=== PATIENT | male | born 1985 | race Caucasian/White ===

== ENCOUNTER 2025-06-06 14:48 | Outpatient (REF) | payer MEDICAID, SELFPAY ==
--- OUTSIDE RECORDS SUMMARY | 2025-06-06 13:45 | XMS_ITS | Encounter Summary ---
Author Organization [employer] Address [address] 7[address] [place] [address] Care Team Providers Care Forensic Locksmith Name Role Phone Francie Moreno WOOD BORER Primary Care Provider [phone] Daniel Silvestre Unavailable Tiffanie Wayne Unavailable [phone] Encounter Details Date Type Department Care Team (Late st Contact Info) Description 06/06/2025 1:45 PM EDT Office Visit [facility] [address] [place], [place] [phone] Francie Moreno FNP [address] [place] [address] Type 2 diabetes mellitus with hyperglycemia, with long-term current use of insulin ([facility]) (Primary Dx); Adult wellness visit Social History Tobacco Use Types Packs/Day Years Used Date Smoking Tobacco: Never Passive Smoke Exposure: Never Smokeless Tobacco: Never Depression Answer Date Recorded Patient Health Questionnaire-9 Score 21 12/14/2024 Patient Health Questionnaire-9 Score 21 12/14/2024 Last PHQ-9: Questionnaire Data Not on file 0 12/14/2024 Housing Stability Answer Date Recorded What is your housing situation today? I have housing today, but I am worried about losing housing in the future 02/01/[address] you li ve. Do you have problems with any of the following? Pests such as bugs, ants, or mice;Mold;Water leaks 02/01/2025 Food Insecurity Answer Date Recorded Within the past 12 months, y ou worried that your food would run out before you got money to buy more: Never True 02/01/2025 Within the past 12 months,th e food you bought just didn't last and you didn't have enough money to get more: Never True Transportation Answer Date Recorded In the past 12 months, has l ack of transportation kept you from medical appts, meetings, work or from getting things needed for daily living? Yes, it has kept me from non-medical meetings, work, or getting things that I need 02/01/2025 Utilities Answer Date Recorded In the past 12 months, has t he [employer], gas, oil or water company threatened to shut off services in your home? No 02/01/2025 Depression Answer Date Recorded Patient Health Questionnaire-2 Score 3 12/14/2024 Internet Access Answer Date Recorded Internet Access Q1 No 02/01/2025 Internet Access Q2 Not on file 02/01/2025 Sex and Gender Information Value Date Recorded Sex Assigned at Male 08/09/2022 10:15 AM EDT Legal Sex Male 10:15 AM EDT Gender Identity Male 08/09/2022 10:15 AM EDT Sexual Orientation Straight 08/09/2022 10 :15 AM EDT documented as of this encounter Last Filed Vital Signs Vital Sign Reading Time Taken Comments Blood Pressure 130/82 06/06/2025 2:10 PM EDT Pulse 109 06/06/2025 2:10 PM EDT Temperature 36.9 C (98.4 F) 06/06/2025 2:10 PM EDT Respiratory Rate 16 06/06/2025 2:10 PM EDT Oxygen Saturation 94% 06/06/2025 2:10 PM EDT Inhaled Oxygen Concentration - - Weight 83.6 kg (184 lb 4 oz) 06/06/2025 2:10 PM EDT Height 175.3 cm (5' 9 ) 06/06/2025 2:10 PM EDT Body Mass Index 27.21 06/06/2025 2:10 PM EDT documented in this encounter Plan of Treatment Upcoming Encounters Date Type Department Care Team (Late st Contact Info) Description 07/11/2025 9:00 AM EDT Office Visit [facility] [address] [place] [address] Francie Moreno FNP [address] [place] [address] Scheduled Orders Name Type Priority Associated Diagnoses Orde r Schedule Hemoglobin A1c Lab Routine Type 2 diabetes mellitus with hyperglycemia, with long-term current use of insulin ([facility]) Expected: 06/06/2025 (Approximate), Expires: 06/06/2026 Vitamin D, 25-Hydroxy, Total, Immunoassay Lab Routine Adult wellness visit Expected: 06/06/2025 (Approximate), Expires: 06/06/2026 documented as of this encounter Procedures Procedure Name Priority Date/Time Associated Diagnosis Comments POCT GLUCOSE Routine 06/06/2025 2:28 PM EDT Type 2 diabetes mellitus with hyperglycemia, with long-term current use of insulin ([facility]) documented in this encounter Results * (ABNORMAL) POCT Glucose (06/06/2025 2:28 PM EDT) Glucose Blood, POC 234(A) 60 - 200 mg/dL QC Media Lot # [id number] Lot# Expiration Date [id number] Blood Capillary blood specimen / Unknown 06/06/2025 2:28 PM EDT Result [facility] Francie Moreno [facility] POINT OF CARE TEST ENTER/EDIT ORDERABLES Final Result documented in this encounter Visit Diagnoses Diagnosis Type 2 diabetes mellitus with hyperglycemia, with long-term current use of insulin ([facility])- Primary Adult wellness visit documented in this encounter Additional Health Concerns Assessment Noted Time PHQ-9 Depression Total Score: 21 025 2:31 PM EST documented as of this encounter Care Teams Forensic Locksmith Relationship Specialty Start Date End Date Francie Moreno FNP [address] [place] [address] PCP - General Family Medicine 12/14/24 Daniel Silvestre 02/20/25 Tiffanie Wayne Registered Nurse 04/29/25 documented as of this encounter
--- OUTSIDE RECORDS SUMMARY | 2025-06-06 15:30 | XMS_ITS ---
Author Organization [employer] Address [address] 7t [place] [address] Care Team Providers Care Personnel Security Specialist Name Role Phone Francie Moreno CLINIQUE COUNTER MANAGER Primary Care Provider [phone] Daniel Silvestre Unavailable Tiffanie Wayne Unavailable [phone] CHW Complex Status:Outreach In Progress (Enrolling) Start date:02/20/2025 Enrollment reason:ADT Feed Overview ADT- Pt admitted to [facility] on 02/17/25 and discharged on 02/18/25. Case Team Name Relationship Phone Daniel Silvestre(Responsible Staff) [phone] Continued Care and Services Coordination
--- OUTSIDE RECORDS SUMMARY | 2025-06-06 15:30 | XMS_ITS | Encounter Summary ---
Author Organization [employer] Address [address] [facility] 7t [place] [address] Care Team Providers Care Roller Repairer Name Role Phone Delmy Bruno MD Primary Care Provide r Francie Moreno Primary Care Provider [phone] Gabby Ortez RN Unavailable [phone] Daniel Silvestre Unavailable Tiffanie Wayne Unavailable [phone] Reason for Visit * Reason Onset Date Comments Triage 12/29/2022 Encounter Details Date Type Department Care Team (Late st Contact Info) Description 12/29/2022 Telephone [facility] [address] [place], [place] [phone] Delmy Bruno MD [address] [place], [place] [phone] Triage Social History Tobacco Use Types Packs/Day Years Used Date Smoking Tobacco: Never Assessed Sex and Gender Information Value Date Recorded Sex Assigned at Male 08/09/2022 10:15 AM EDT Legal Sex Male 10:15 AM EDT Gender Identity Male 08/09/2022 10:15 AM EDT Sexual Orientation Straight 08/09/2022 10 :15 AM EDT documented as of this encounter Miscellaneous Notes * Telephone Encounter - Liss Ramirez RN - 12/30/2022 9:14 AM EDT Pt. Not seen at [facility] in >4 years, please call for a new patient appointment, thank you! * Telephone Encounter - Rosaura John LPN - 12/29/2022 4:08 PM EDT Triage call returned to patient who reports increasingly worse depression.reports long standing history of depression not on any medications at this time. No HI/SI concerns at time of call. No new changes to patient routine or lifestyle, no reported recent trauma. Patient reports that he has not gone out of his house in some time and that he feels anxious if he does. He is not sleeping well and feels that he is forgetful and spaces out and doesn't pay attention when with others . Appetite at baseline. Not seeing therapist but reports that he has [facility] crisis number as needed when number offered. Disposition reviewed and patient in agreement with plan. No PCP or Team appts available at time of call. Team tasked to follow with patient with available appt. Protocol Used: Depression (Adult) Protocol-Based Disposition: See in Office or Video Visit within 3 Days Video visit not offered Positive Triage Question: * Depression is worsening (e.g.,sleeping poorly, less able to do activities of daily living) * All higher-acuity triage questions were negative Care Advice Discussed: * Reasons To Call Back - Sadness or depression symptoms persist over 2 weeks - You want to talk with a counselor - You feel like harming yourself - You become worse * Telephone Encounter - Heather Chino - 12/29/2022 2:54 PM EDT Symptom: Pain - Severe, Depression Outcome: Schedule an urgent appointment (within 1 hour) or talk to a nurse or provider soon Reason: No high acuity concerns reported by caller The caller accepted this outcome Please contact pt at [phone] documented in this encounter Plan of Treatment Upcoming Encounters Date Type Department Care Team ([facility] st Contact Info) Description 07/11/2025 9:00 AM EDT Office Visit [facility] [address] [place] [address] Francie Moreno FNP [address] [place] [address] documented as of this encounter Visit Diagnoses Not on filedocumented in this encounter Care Teams Roller Repairer Relationship Specialty Start Date End Date Delmy Bruno MD [address] [place] [address] PCP - General Family Medicine 11/07/18 10/31/23 Francie Moreno FNP [address] [place] [address] PCP - General Family Medicine 12/14/24 Gabby Ortez RN [address] [place] [address] Registered Nurse Family Medicine 02/20/25 04/29/25 Daniel Silvestre 02/20/25 Tiffanie Wayne Registered Nurse 04/29/25 documented as of this encounter
--- OUTSIDE RECORDS SUMMARY | 2025-06-06 15:30 | XMS_ITS | Clinical Summary ---
Author Organization [employer] Address [address] [facility] 7t [place] [address] Care Team Providers Care Transit Man Name Role Phone Francie Moreno RESIDENT SERVICES MANAGER Primary Care Provider [phone] Daniel Silvestre Unavailable Tiffanie Wayne Unavailable [phone] Allergies No known active allergies Medications Ketostix strip USE TWICE DAILY IF GLUCOSE IS OVER 400 OR IS CONSISTENTLY OVER 200. 4 Active atorvastatin (Lipitor) 10 MG tablet Take 1 tablet by mouth Once per day. 4 Active Continuous Glucose Rack Puller (Dexcom G7 Rack Puller) device USE DIRECTED FOR DIABETES CONTROL. 90 DAY SUPPLY 4 Active Continuous Glucose Sensor (Dexcom G7 Sensor) misc USE DIRECTED FOR DIABETES CONTROL. 30 DAY SUPPLY 5 Active Gvoke HypoPen 2-Pack 1 MG/0.2ML injection PLEASE SEE ATTACHED FOR DETAILED DIRECTIONS Active B-D UF III MINI PEN NEEDLES 31G X 5 MM misc USE DIRECTED FOR TYPE 2 DIABETES MELLITUS. 4 TIMES DAILY WITH INSULIN 5 Active insulin glargine (Lantus) 100 UNIT/ML pen Inject 20 Units under the skin 2 times daily. 4 Active insulin lispro (HumaLOG) 100 UNIT/ML injection Inject 10-22 Units under the skin with breakfast, with lunch, and with evening meal. Active citalopram (CeleXA) 10 MG tablet Take 1 tablet (10 mg) by mouth Once per day. 30 tablet 1 5 025 Active albuterol 108 (90 Base) MCG/ACT inhaler Inhale 2 puffs every 4 (four) hours if needed for wheezing. 18 g 1 5 026 Active fluticasone (Flonase) 50 MCG/ACT nasal spray Administer 1-2 sprays into each nostril Once per day. Shake gently. Before first use, prime pump. After use, clean tip and replace cap. 16 g 1 5 026 Active Alcohol Swabs (Alcohol Prep) 70 % pads USE 7 TIMES PER DAY 4 025 Discontin ued(Other ) Active Problems Problem Noted Date Diagnosed Date Screening due 02/03/2025 Closed fracture of upper end of left tibia with routine healing 12/17/2024 Type 2 diabetes mellitus wit h hyperglycemia, with long-term current use of insulin 12/14/2024 Overview (12/14/2024): Diagnosed 06/2024 at [facility]: Polyuria and polydipsia History of Present Illness 39-year-old male patient without significant past medical history who presents today Admission Department for evaluation of polyuria and polydipsia for the past few weeks. Reports persistent poor urine production for the past few weeks, first noticed when he was in [place] and he attributed to hot weather however has been persistent since then. He denies fever, chills, unintentional weight loss, abdominal pain, shortness of breath or chest pain upon presentation to emergency department, he was hemodynamically stable blood pressure 143/90, afebrile, maintaining saturation at 97% on room air. He was slightly tachycardic with pulse rate of 115 initial blood work was notable for significant hyperglycemia with blood sugars more than 500 hydroxybutyrate was slightly elevated at 0.86 without metabolic acidosis. Hyponatremia was 121 A1c was 12.9 she was given 3 L boluses in the emergency department, and given 10 units of lispro and admitted under medicine for further management and evaluation. Insulin Glargine Solostar Pen 100 units/mL subcutaneous solution = 30 units, Subcutaneous Infusion, 2 times a day, # 15 mL, 0 Refills, Maintenance, 07/11/24 11:35:00 EDT, [facility], Partial fill upon patient request if the prescription is for a schedule II opioid drug., 175, cm, 07/10/24 10:57:00 EDT... Start Date: 07/11/24 Stop Date: 08/10/24 Status: Ordered insulin lispro 100 units/mL injectable solution 16-31 units, Subcutaneous Injection, 3 times a day before meals, << Sliding Scale Comments >> 100 - 149 16 units Call if less than 70 150 - 199 19 units 200 - 249 22 units 250 - 299 25 units 300 - 349 28 units 350 - 399 31 units... Start Date: 07/11/24 Stop Date: 08/10/24 Status: Ordered Closed fracture of shaft of left tibia with rout ine healing 12/08/2024 Anxiety 03/07/2024 Asthma 03/07/2024 Genital herpes simplex 03/07/2024 Panic disorder 03/07/2024 Umbilical hernia 03/07/2024 Encounters Date Type Department Care Team Description 06/06/2025 1:45 PM EDT Office Visit [address] [address] Francie Moreno FNP Type 2 diabetes mellitus with hyperglycemia, with long-term current use of insulin ([facility]) (Primary Dx); Adult wellness visit 06/06/2025 Travel 06/04/2025 Patient Outreach [address] [address] Francie Moreno FNP Care Coordination ([facility]/W jasmin Cline missed assessment appt_unable to lvm) 05/30/2025 Patient Outreach [facility] [address] [place] [address] Francie Moreno FNP Pre-visit Planning (SDOH was already completed) 05/27/2025 Patient Outreach [address] [address] Francie Moreno FNP Care Coordination ([facility]/W BRISEIDA Cline RS missed assessment appt_unable to lvm) 05/14/[address] [address] Francie Moreno FNP Nurse Triage 05/06/2025 Patient Outreach [address] [address] Francie Moreno, RESIDENT SERVICES MANAGER Care Management ([facility] initial assessment-lvm) 05/03/2025 Patient Outreach [address] [address] Francie Moreno, RESIDENT SERVICES MANAGER Care Coordination ([facility]/INDIA Silvestre, appt reminder_lvm ) 04/29/2025 Patient Outreach [address] [address] Francie Moreno, RESIDENT SERVICES MANAGER Care Coordination ([facility]/INDIA Silvestre, I.A. scheduled) 03/29/2025 Patient Outreach [address] [address] Francie Moreno, RESIDENT SERVICES MANAGER Care Coordination ([facility]/Adamaris Silvestre, TC #4 initial outreach attempt_unable to lvm ) 03/07/2025 Patient Outreach [facility] [address] [place], [place] [phone] Francie Moreno, RESIDENT SERVICES MANAGER from Last 3 Months Immunizations Immunization Administration Dates Next Due Influenza, IIV3, injectable 07/08/2024 Influenza, Split (incl. purified surface antigen ) 08/16/2012 TD (adult), 2 Lf tetanus tox oid, preservative free, adsorbed 03/01/2017 Social History Tobacco Use Types Packs/Day Years Used Date Smoking Tobacco: Never Passive Smoke Exposure: Never Smokeless Tobacco: Never Tobacco Cessation:Counseling Given: Not Answered Depression Answer Date Recorded Patient Health Questionnaire-9 [...] the past 12 months, has t he [employer], gas, oil or water [employer] threatened to shut off services in your [...] Orientation Straight 08/09/2022 10 :15 AM EDT Last Filed Vital Signs Vital Sign Reading [...] Mass Index 27.21 06/06/2025 2:10 PM EDT Plan of Treatment Upcoming Encounters Date Type Department Care Team (Late st Contact Info) Description 07/11/2025 9:00 AM EDT Office Visit [facility] [address] [place] [address] Francie Moreno FNP [address] [place] [address] Health Maintenance Due Date Last Done Comments HIV Screening 1983 Lipid Panel 1983 Diabetes: Foot Exam 1993 Eye Exam 1993 Family Planning (PISQ) 1998 HPV Vaccines (1 - Male 3-dos e series) 1998 Hepatitis C Screening 2001 Diabetes: Urine Protein Screening 2002 Hepatitis B Vaccines (1 of 3 - 19+ 3-dose series) 2002 Pneumococcal Vaccine: Pediatrics (0 to 5 Years) and At-Risk Patients (6 to 49) Years (1 of 2 - PCV) 2002 DTaP/Tdap/Td Vaccines (1 - Tdap) 03/02/2017 03/01/2017 COVID-19 Vaccine (4 - 2023-2 5 season) 2024 09/09/2022, 04/07/2021, 03/17/2021 Influenza Vaccine (#1) 2025 , 08/16/2012 Depression Monitoring 06/16/2025 12/14/2024 , 12/14/2024 Diabetes: Hemoglobin A1C 08/03/2025 02/01/2025 Disability Screening 02/01/2026 02/01/2025 SDOH Screening 02/01/2026 02/01/2025 Alcohol/Substance Use Screening 06/06/2026 06/06/2025 Tobacco Screening 06/06/2026 06/06/2025 Zoster Vaccines (1 of 2) 2033 RSV Patients and Patients Aged 60 years or older (1 - 1-dose 75+ series) 2058 HIB Vaccines Aged Out No longer eligi ble based on patient's age to complete this topic Hepatitis A Vaccines Aged Out No long er eligible based on patient's age to complete this topic IPV Vaccines Aged Out No longer eligi ble based on patient's age to complete this topic Meningococcal B Vaccine Aged Out No l onger eligible based on patient's age to complete this topic Meningococcal Vaccine Aged Out No karley linda eligible based on patient's age to complete this topic RSV under 20 months Aged Out No longe r eligible based on patient's age to complete this topic Rotavirus Vaccines Aged Out No longer eligible based on patient's age to complete this topic Procedures Procedure Name Priority Date/Time Associated Diagnosis Comments POCT GLUCOSE Routine 06/06/2025 2:28 PM EDT Type 2 diabetes mellitus with hyperglycemia, with long-term current use of insulin ([facility]) POCT GLYCATED HEMOGLOBIN, TOTAL Routine 02/01/2025 9:25 AM EDT Type 2 diabetes mellitus with hyperglycemia, with long-term current use of insulin ([facility]) Screening due from Last 3 Months or Most Recently Relevant to Health Maintenance Results * (ABNORMAL) POCT Glucose (06/06/2025 2:28 PM EDT) Glucose Blood, POC 234(A) 60 - 200 mg/dL QC Media Lot # [id number] Lot# Expiration Date Blood Capillary blood specimen / Unknown 06/06/2025 2:[address] [facility] POINT OF CARE TEST ENTER/EDIT ORDERABLES Final Result * (ABNORMAL) POCT HGB A1C (02/01/2025 9:25 AM EDT) Hemoglobin A1C 6.3(A) 4.0 - 6.0 % QC [employer] Lot # [id number] Lot# Expiration Date Blood 02/01/2025 9:25 AM EDT [facility] POINT OF CARE TEST ENTER/EDIT ORDERABLES Final Result from Last 3 Months or Most Recently Relevant to Health Maintenance Insurance [facility] [address] [place] [id number] [place] [id number] Care Teams Transit Man Relationship Specialty Start Date End Date Francie Moreno FNP [address] [place] [address] PCP - General Family Medicine 12/14/24 Daniel Silvestre 02/20/25 Tiffanie Wayne Registered Nurse 04/29/25
--- OUTSIDE RECORDS SUMMARY | 2025-06-06 15:30 | XMS_ITS | Encounter Summary ---
Author Organization [employer] Address [address] [facility] 7t [place] [address] Care Team Providers Care Medical Assistant Ob Gyn Name Role Phone Francie Moreno Primary Care Provider [phone] Daniel Silvestre Unavailable Tiffanie Wayne Unavailable [phone] Reason for Visit * Reason Comments Care Coordination C3CM/CHW Daniel Denton santana, reschedule missed assessment appt_unable to lvm Encounter Details Date Type Department Care Team (Latest Contact Info) Description 06/04/2025 Patient Outreach [facility] [address] [place], [place] [phone] Francie Moreno FNP [address] [place] [address] Care Coordination (C3[facility]/CHW Daniel Silvestre, reschedule missed assessment appt_unable to lvm) Social History Tobacco Use Types Packs/Day Years [...] the past 12 months, has t he electric, gas, oil or water company threatened to [...] AM EDT documented as of this encounter Progress Notes * Daniel Silvestre - 06/04/2025 10:08 AM EDT CHW Daniel Silvestre placed outbound call to patient in regards to rescheduling missed initial assessment appointment on 05/06/25 for Adult Complex Care program services. No answer at this time. CHW will re-attempt to contact within 5 days. and address not confirmed. documented in this encounter Plan of Treatment Upcoming Encounters Date Type Department Care Team ([facility] st Contact Info) Description 07/11/2025 9:00 AM EDT Office Visit [facility] [address] [place] [address] Francie Moreno FNP [address] [place] [address] documented as of this encounter Visit Diagnoses Not on filedocumented in this encounter Additional Health Concerns Assessment Noted Time PHQ-9 Depression Total Score: 21 12/14/ 025 2:31 PM EST documented as of this encounter Care Teams Medical Assistant Ob Gyn Relationship Specialty Start Date End Date Francie Moreno FNP [address] [place] [address] PCP - General Family Medicine 12/14/24 Daniel Silvestre 02/20/25 Tiffanie Wayne Registered Nurse 04/29/25 documented as of this encounter
--- OUTSIDE RECORDS SUMMARY | 2025-06-06 15:30 | XMS_ITS | Encounter Summary ---
Author Organization [employer] Address [address] [place] [address] Care Team Providers Care Hip Hop Dance Instructor Name Role Phone Anderson Morenoupe RUBBER TUBING BACKER Primary Care Provider [phone] Daniel Silvestre Unavailable Tiffanie Wayne Unavailable [phone] Encounter Details Date Type Department Care Team (Latest Contact Info) Description 06/06/2025 Travel Social History Tobacco Use Types Packs/Day Years [...] AM EDT documented as of this encounter Plan of Treatment Upcoming Encounters Date Type Department Care Team (Late st Contact Info) Description 07/11/2025 9:00 AM EDT Office Visit [facility] [address] [place] [address] Francie Moreno FNP [address] [place] [address] documented as of this encounter Visit Diagnoses Not on filedocumented in this encounter Additional Health Concerns Assessment Noted Time PHQ-9 Depression Total Score: 21 025 2:31 PM EST documented as of this encounter Care Teams Hip Hop Dance Instructor Relationship Specialty Start Date End Date Francie Moreno FNP [address] [place] [address] PCP - General Family Medicine 12/14/24 Daniel Silvestre 02/20/25 Tiffanie Wayne Registered Nurse 04/29/25 documented as of this encounter
--- OUTSIDE RECORDS SUMMARY | 2025-06-06 15:30 | XMS_ITS | Clinical Summary ---
Author Organization [facility] it Address [address] [place] [address] Care Team Providers Care Format Proofreader Name Role Phone Unavailable Primary Care Provider Unavailabl e Social History Tobacco Use Types Packs/Day Years Used Date Smoking Tobacco: Never Assessed Sex and Gender Information Value Date Recorded Sex Assigned at Not on file Legal Sex Male 8:28 AM EST Gender Identity Not on file Sexual Orientation Not on file Plan of Treatment Health Maintenance Due Date Last Done Comments DTaP,Tdap,and Td Vaccines (1 - Tdap) 2002 Hepatitis B Vaccines (1 of 3 - 19+ 3-dose series) 2002 COVID-19 Vaccine ( - 2023-2 5 season) 2024 Depression Screening 10/10/2024 Influenza Vaccine (#1) 2025 HIB Vaccines Aged Out No longer eligi ble based on patient's age to complete this topic HPV Vaccines Aged Out No longer eligi ble based on patient's age to complete this topic Hepatitis A Vaccines Aged Out No long er eligible based on patient's age to complete this topic IPV Vaccines Aged Out No longer eligi ble based on patient's age to complete this topic MMR Vaccines Aged Out No longer eligi ble based on patient's age to complete this topic Meningococcal ACWY Vaccine Aged Out N o longer eligible based on patient's age to complete this topic Meningococcal B Vaccine Aged Out No l onger eligible based on patient's age to complete this topic Pneumococcal Vaccine: Pediat rics (0 to 5 Years) and At-Risk Patients (6 to 49 Years) Aged Out No longer eligible b ased on patient's age to complete this topic RSV Immunization Patients Un dorian 20 months Aged Out No longer eligible b ased on patient's age to complete this topic Varicella Vaccines Aged Out No longer eligible based on patient's age to complete this topic
--- OUTSIDE RECORDS SUMMARY | 2025-06-06 15:30 | XMS_ITS ---
Author Organization [employer] Address [address] [place] [address] Care Team Providers Care Impersonator Character Name Role Phone Francie Moreno ANGLE SHEARER Primary Care Provider [phone] Daniel Silvestre Unavailable Tiffanie Wayne Unavailable [phone] CM Complex Status:Outreach In Progress (Enrolling) Start date:02/20/2025 Enrollment reason:ADT Feed Overview ADT- Pt admitted to [facility] on 02/17/25 and discharged on 02/18/25. Case Team Name Relationship Phone Tiffanie Wayne(Responsible Staff) Registered Nurse [phone] Continued Care and Services Coordination
--- OUTSIDE RECORDS SUMMARY | 2025-06-06 15:30 | XMS_ITS | Encounter Summary ---
Author Organization [employer] Address [address] [place] [address] Care Team Providers Care Tie Knitter Helper Name Role Phone Francie Moreno Primary Care Provider [phone] Daniel Silvestre Unavailable Tiffanie Wayne Unavailable [phone] Reason for Visit * Reason Comments Care Coordination C3CM/CHW BRISEIDA Edgar missed assessment appt_unable to lvm Encounter Details Date Type Department Care Team (Latest Contact Info) Description 05/27/2025 Patient Outreach [facility] [address], [place] [phone] Francie Moreno FNP [address], [place] [phone] Care Coordination (C3CM/DESTINEEW BRISEIDA Cline missed assessment appt_unable to lvm) Social History [...] encounter Progress Notes * Daniel Silvestre - 05/27/2025 2:40 PM EDT CHW Daniel Silvestre placed outbound call to patient in regards to rescheduling missed initial assessment appointment on 05/06/25 for Adult Complex Care program services. No answer at this time. CHW will re-attempt to contact within 5 days. and address not confirmed. documented in this encounter Plan of Treatment Upcoming Encounters Date Type Department Care Team ([facility] st Contact Info) Description 07/11/2025 9:00 AM EDT Office Visit [facility] [address] [place] [address] Francie Moreno FNP [address], [place] [phone] documented as of this encounter Visit Diagnoses Not on filedocumented in this encounter Additional Health Concerns Assessment Noted Time PHQ-9 Depression Total Score: 21 025 2:31 PM EST documented as of this encounter Care Teams Tie Knitter Helper Relationship Specialty Start Date End Date Francie Moreno FNP [address] [place] [address] PCP - General Family Medicine 12/14/24 Daniel Silvestre 02/20/25 Tiffanie Wayne Registered Nurse 04/29/25 documented as of this encounter
[2025-06-06 16:10] LABS: MANUAL DIFF FLAG NO
[2025-06-06 16:20] LABS: Hematocrit 46.5 % (42.0-52.0); Hemoglobin 14.8 g/dl (14.0-18.0); Imm Gran Abs Auto 0.02 X10*3/uL (0.00-0.03); Imm Gran Pct Auto 0.3 % (0.0-0.4); Lymphocytes Absolute Auto 1.9 X10*3/uL (1.2-4.9); Mean Corpuscular HGB Conc 31.8 g/dl (31.0-36.0); Mean Corpuscular Hemoglobin 25.1 pg (27.0-33.0); Mean Corpuscular Volume 78.8 fL (80.0-98.0); NRBC Abs Auto 0.000 X10*3/uL (0.0-0.012); NRBC Pct Auto 0.0 /100WBC (0.0-0.2); Platelet Count 389 X10*3/uL (160-400); Red Blood Count 5.90 X10*6/uL (4.60-5.80); White Blood Count 6.9 X10*3/uL (4.8-10.8)
[2025-06-06 16:31] LABS: Hemoglobin A1C 233.9655 umol/L; Total Hemoglobin (HGBA1C) 3783.1707 umol/L
[2025-06-06 16:39] LABS: Alanine Aminotransferase 52 U/L (0-40); Albumin Level 4.7 g/dL (3.5-5.0); Alkaline Phosphatase 125 U/L (39-117); Anion Gap 10 (12-20); Aspartate Amino Transferase 33 U/L (5-37); Blood Urea Nitrogen 10 mg/dL (9-16); Calcium 9.7 mg/dL (8.4-10.2); Carbon Dioxide 27 mmol/L (22-29); Chloride 106 mmol/L (96-108); Cholesterol 178 mg/dL (<200); Estimated Glomerular Filt Rate > 60; HDL Cholesterol 59 mg/dL (>40); Potassium 4.2 mmol/L (3.3-5.1); Sodium 139 mmol/L (135-145); Total Protein 7.8 g/dL (6.5-8.0); Triglycerides 158 mg/dL (<150)
[2025-06-07 03:54] LABS: HBS Num1 119.22 mIU/mL (0-7.99); HBc Num1 0.04 S/CO (0.00-0.79); HBsAGNum1 0.43 S/CO (0.00-0.99); HIV Num 1 0.08 S/CO (0.00-0.99); Hepatitis B Surface Antigen Negative (Negative); ~HepC Num1 0.14 S/CO (0.00-0.79); ~Hepatitis B Surface Antibody REACTIVE (Nonreactive); ~Hepatitis C Antibody Nonreactive (Nonreactive)
== END 2025-06-06 14:49 | disposition home or self-care (01) ==
LOC: HO.HHCL 14:48
PROVIDERS: PCP Internal Medicine; Referring Provider Nurse Practitioner Family; Visit Provider Nurse Practitioner Family
DX: Z00.00 Encounter for general adult medical examination without abnormal findings (principal); Z11.59 Encounter for screening for other viral diseases; Z11.4 Encounter for screening for human immunodeficiency virus [HIV]; E11.65 Type 2 diabetes mellitus with hyperglycemia; Z79.4 Long term (current) use of insulin
CPT/HCPCS: 36415; 80053; 80061; 82306; 83036; 85025; 86704; 86706; 86803; 87340; 87389